=== PATIENT | female | born 1965 | race Caucasian/White ===

== ENCOUNTER → 2022-10-11 | Outpatient (CLI) | payer SELFPAY | LOC: LAB 08:05 | DX: Z01.89 Encounter for other specified special examinations (principal) | CPT/HCPCS: 36415; 80061; 84443 ==

== ENCOUNTER → 2023-07-15 | Outpatient (CLI) | payer OTHER ==
--- NOTE | 2023-07-15 16:11 | Diagnostic Imaging Report ---
INDICATION: Left views of lateral knee pain. EXAMINATION: Three views of the left knee performed. 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 Arthritic changes most advanced, however, at the patellofemoral compartment. There is some swelling anteriorly but no loose body or confirmed joint effusion. No fracture. IMPRESSION: Hypertrophic tricompartmental degenerative changes and some soft tissue swelling. No fracture or acute bony abnormality, however. Dictated by: Dictated on workstation # [id number]
== END ==
LOC: RAD 15:29
PROVIDERS: ATTEND Nurse Practitioner Family
DX: M17.12 Unilateral primary osteoarthritis, left knee (principal)
CPT/HCPCS: 73562